=== PATIENT | male | born 1990 | race Caucasian/White ===

== ENCOUNTER 2016-05-07 16:53 | Emergency (ER) | payer OTHER ==
[2016-05-07] MEDS ORDERED: DERMABOND TOPICAL SKIN ADHESIVE As Ordered ONE (18:33)
[2016-05-07] MEDS ORDERED: AUGMENTIN 875 MG TAB As Ordered ONE (18:33)
[2016-05-07] MEDS ORDERED: IBUPROFEN 600 MG TAB As Ordered ONE (18:33)
--- NOTE | 2016-05-07 18:50 | EDDOCDS ---
Nurse's Notes [facility] Name: Calin Grey Age: 25 yrs Sex: Male : 1990 Arrival Date: 05/07/2016 Time: 16:53 Bed TR7 Private MD: Other - Complete Info On Cds Diagnosis: Laceration without foreign body of other part of head-left lower eyelid;Bitten by dog Presentation: 05/07 17:08 Presenting complaint: Patient states: bit by his own dog about 45 minutes ago - kcs laceration under left eye. No visual disturbance. Adult Sepsis Screening: The patient does not have new or worsening altered mentation. Patient's respiratory rate is less than 22. Systolic blood pressure is greater than 100. Patient has a qSOFA score of 0- Negative Sepsis Screen. Suicide/Homicide risk assessment- the patient denies having any suicidal and/or homicidal ideations and does not present with any other emotional, behavioral or mental health complaints. 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 Transition of care: patient was not received from another setting of care. 17:08 Acuity: YOSHI Level 4 kcs 17:08 Method Of Arrival: Walkin/Carried/Asstd kcs Triage Assessment: 17:10 Bite Description: Bite sustained to under left eye by a dog, Animal Information: kcs Vaccine status: is current. General: Appears comfortable, well developed, well nourished, well groomed, Behavior is cooperative, flat. Pain: Location: under left eye Pain currently is 5 out of 10 on a pain scale. HIV screening NA for this visit active duty . Neurological: Level of Consciousness is awake, alert. Respiratory: Airway is patent Respiratory effort is even, unlabored, Respiratory pattern is regular, symmetrical. Derm: Skin is intact, is healthy with good turgor, Skin is dry, Skin is normal. Injury Description: Laceration sustained to under left eye - no active bleeding. Historical: - Allergies: No known drug Allergies; - Home Meds: 1. none - PMHx: none; - PSHx: Tonsillectomy; - Immunization history:: Last tetanus immunization: up to date. - Family history: Not pertinent. - Social history: Smoking status: Patient uses tobacco products, light tobacco smoker. No barriers to communication noted, The patient speaks fluent Estonian. - : The pt / caregiver states he / she is not on anticoagulants. Home medication list is obtained from the patient. - Exposure Risk Screening:: None identified. Screenin:36 Screening information is obtained from the patient. Fall risk: No risks identified. ms18 Assistance ADL's: requires no assistance with activities of daily living. Abuse/DV Screen: The patient / caregiver reports he/she is: not in a situation that causes fear, pain or injury. Nutritional screening: No deficits noted. Advance Directives: There is no living will. home support is adequate. Assessment: 18:36 General: Appears in no apparent distress, comfortable, Behavior is appropriate for age, ms18 cooperative. Pain: Location: left lower eyelid. Neurological: Level of Consciousness is awake, alert, obeys commands, Oriented to person, place, time. Respiratory: Airway is patent Respiratory effort is even, unlabored. Derm: Skin has skin tears on under L eye, no bleeding noted at this time Skin is pink, warm & dry. Vital Signs: 16:55 BP 157 / 82; Pulse 69; Resp 18 S; Temp 98.3(O); Pulse Ox 100% on R/A; Weight 88.45 kg dd6 (R); Height 5 ft. 11 in. (180.34 cm) (R); Pain 6/10; 16:55 Body Mass Index 27.20 (88.45 kg, 180.34 cm) dd6 Vitals: 16:55 Log In Time: May 07, 2016 at 16:55. dd6 ED Course: 16:55 Patient visited by Vamsi Pearl PCA. dd6 16:55 Other - Complete Info On Cds is Private Physician. dd6 16:55 Patient moved to Waiting dd6 16:56 Patient visited by Vamsi Pearl PCA. dd6 16:56 Patient moved to Pre RCE dd6 17:09 Triage Initiated kcs 18:15 Patient moved to Triage 3 ct3 18:19 Quan Panda PA is PHCP. mo1 18:19 Yoko Martinez MD is Attending Physician. mo1 18:26 Patient visited by Quan Panda PA. mo1 18:36 Patient visited by Cristin Self RN. ms18 18:36 The patient / caregiver is instructed regarding the plan of care and ED course. ms18 Accompanied by Significant Other, Patient has correct armband on for positive identification. Property sent home with patient. :Personal belongings accompany Pt. 18:36 No IV's were initiated during this patient's visit. No procedures done that require ms18 assistance. 18:48 Patient moved to 7 ct3 18:49 Patient visited by Cristin Self,JOY. ms18 Administered Medications: 18:35 Drug: Ibuprofen 600 mg [ibuprofen 600 mg tablet (1 tabs)] Route: PO; ms18 18:35 Drug: Amoxicillin-Clavulanate 1 tabs [amoxicillin 875 mg-potassium clavulanate 125 mg ms18 tablet (1 tabs)] Route: PO; Order Results: There are currently no results for this order. Outcome: 18:36 Discharge Assessment: Patient awake, alert and oriented x 3. No cognitive and/or ms18 functional deficits noted. Patient verbalized understanding of disposition instructions. patient administered narcotics - no. The following High Risk Discharge criteria are identified: None. Discharged to home ambulatory. Condition: good Condition: stable Condition: improved. No special radiology studies were completed. 18:44 Discharge ordered by Provider. mo1 18:49 Discharge instructions given to patient, Instructed on discharge instructions, follow ms18 up and referral plans. medication usage, Demonstrated understanding of instructions, medications, Pt was receptive of discharge instructions/ teaching. Prescriptions given X 1. 18:49 Patient left the ED. ms18 Signatures: Bonnie Hernandez, RN Vamsi Oh, BAG LINER BAG LINER dd6 Jen Alejandre, BAG LINER BAG LINER ct3 Quan Panda PA PA mo1 Cristin Self RN RN ms18 MTDD
--- NOTE | 2016-05-07 18:50 | EDDOCDS ---
Physician Documentation [facility] Name: Calin Grey Age: 25 yrs Sex: Male : 1990 Arrival Date: 05/07/2016 Time: 16:53 Bed TR7 Private MD: Other - Complete Info On Cds Disposition: 05/07/16 18:44 Discharged to Home/Self Care. Impression: Laceration without foreign body of other part of head - left lower eyelid, Bitten by dog. - Condition is Stable. - Discharge Instructions: Facial Laceration, Stitches, Bossman, or Adhesive Wound Closure, Animal Bite. - Prescriptions for Augmentin 875- 125 mg Oral Tablet - take 1 tablet by ORAL route every 12 hours for 10 days; 20 tablet. - Medication Reconciliation, Local Pharmacy Hours form. - Follow up: Private Physician; When: Call to arrange an appointment; Reason: Recheck today's complaints, Continuance of care. - Problem is new. - Symptoms are unchanged. Historical: - Allergies: No known drug Allergies; - Home Meds: 1. none - PMHx: none; - PSHx: Tonsillectomy; - Immunization history:: Last tetanus immunization: up to date. - Family history: Not pertinent. - Social history: Smoking status: Patient uses tobacco products, light tobacco smoker. No barriers to communication noted, The patient speaks fluent Malaysian. - : The pt / caregiver states he / she is not on anticoagulants. Home medication list is obtained from the patient. - Exposure Risk Screening:: None identified. Vital Signs: 05/07 16:55 BP 157 / 82; Pulse 69; Resp 18 S; Temp 98.3(O); Pulse Ox 100% on R/A; Weight 88.45 kg / dd6 195 lbs (R); Height 5 ft. 11 in. (180.34 cm) (R); Pain 6/10; 16:55 Body Mass Index 27.20 (88.45 kg, 180.34 cm) dd6 Procedures: 18:40 Laceration repair:. mo1 Laceration: 18:40 Wound Repair of 2cm ( 0.8in ) partial thickness laceration to left lower eyelid. Distal mo1 neuro/vascular/tendon intact. Anesthesia: None with None. Skin closed with 1 thin layer Dermabond using dermabond applied to lower margin of flap like partial thickness lac. Patient tolerated well. MDM: 18:33 Ibuprofen 600 mg PO once ordered. mo1 18:33 Dermabond to bedside ordered. mo1 18:33 Amoxicillin-Clavulanate 875 mg 1 tabs PO once ordered. mo1 Administered Medications: 18:35 Drug: Ibuprofen 600 mg [ibuprofen 600 mg tablet (1 tabs)] Route: PO; ms18 18:35 Drug: Amoxicillin-Clavulanate 1 tabs [amoxicillin 875 mg-potassium clavulanate 125 mg ms18 tablet (1 tabs)] Route: PO; Signatures: Bonnie Hernandez, RN RN kcs Quan Panda PA PA mo1 Cristin Self RN RN ms18 MTDD
--- NOTE | 2016-05-09 20:34 | EDDOCDS ---
Nurse's Notes [facility] Name: Calin Grey Age: 25 yrs Sex: Male : 1990 Arrival Date: 05/07/2016 Time: 16:53 Bed TR7 Private MD: Other - Complete Info On Cds Diagnosis: Laceration without foreign body of other part of head-left lower eyelid;Bitten by dog Presentation: 05/07 17:08 Presenting complaint: Patient states: bit by his own dog about 45 minutes ago - kcs laceration under left eye. No visual disturbance. Adult Sepsis Screening: The patient does not have new or worsening altered mentation. Patient's respiratory rate is less than 22. Systolic blood pressure is greater than 100. Patient has a qSOFA score of 0- Negative Sepsis Screen. Suicide/Homicide risk assessment- the patient denies having any suicidal and/or homicidal ideations and does not present with any other emotional, behavioral or mental health complaints. 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 Transition of care: patient was not received from another setting of care. 17:08 Acuity: YOSHI Level 4 kcs 17:08 Method Of Arrival: Walkin/Carried/Asstd kcs Triage Assessment: 17:10 Bite Description: Bite sustained to under left eye by a dog, Animal Information: kcs Vaccine status: is current. General: Appears comfortable, well developed, well nourished, well groomed, Behavior is cooperative, flat. Pain: Location: under left eye Pain currently is 5 out of 10 on a pain scale. HIV screening NA for this visit active duty . Neurological: Level of Consciousness is awake, alert. Respiratory: Airway is patent Respiratory effort is even, unlabored, Respiratory pattern is regular, symmetrical. Derm: Skin is intact, is healthy with good turgor, Skin is dry, Skin is normal. Injury Description: Laceration sustained to under left eye - no active bleeding. Historical: - Allergies: No known drug Allergies; - Home Meds: 1. none - PMHx: none; - PSHx: Tonsillectomy; - Immunization history:: Last tetanus immunization: up to date. - Family history: Not pertinent. - Social history: Smoking status: Patient uses tobacco products, light tobacco smoker. No barriers to communication noted, The patient speaks fluent Slovenian. - : The pt / caregiver states he / she is not on anticoagulants. Home medication list is obtained from the patient. - Exposure Risk Screening:: None identified. Screenin:36 Screening information is obtained from the patient. Fall risk: No risks identified. ms18 Assistance ADL's: requires no assistance with activities of daily living. Abuse/DV Screen: The patient / caregiver reports he/she is: not in a situation that causes fear, pain or injury. Nutritional screening: No deficits noted. Advance Directives: There is no living will. home support is adequate. Assessment: 18:36 General: Appears in no apparent distress, comfortable, Behavior is appropriate for age, ms18 cooperative. Pain: Location: left lower eyelid. Neurological: Level of Consciousness is awake, alert, obeys commands, Oriented to person, place, time. Respiratory: Airway is patent Respiratory effort is even, unlabored. Derm: Skin has skin tears on under L eye, no bleeding noted at this time Skin is pink, warm & dry. Vital Signs: 16:55 BP 157 / 82; Pulse 69; Resp 18 S; Temp 98.3(O); Pulse Ox 100% on R/A; Weight 88.45 kg dd6 (R); Height 5 ft. 11 in. (180.34 cm) (R); Pain 6/10; 16:55 Body Mass Index 27.20 (88.45 kg, 180.34 cm) dd6 Vitals: 16:55 Log In Time: May 07, 2016 at 16:55. dd6 ED Course: 16:55 Patient visited by Vamsi Pearl PCA. dd6 16:55 Other - Complete Info On Cds is Private Physician. dd6 16:55 Patient moved to Waiting dd6 16:56 Patient visited by Vamsi Pearl PCA. dd6 16:56 Patient moved to Pre RCE dd6 17:09 Triage Initiated kcs 18:15 Patient moved to Triage 3 ct3 18:19 Quan Panda PA is PHCP. mo1 18:19 Yoko Martinez MD is Attending Physician. mo1 18:26 Patient visited by Quan Panda PA. mo1 18:36 Patient visited by Cristin Self RN. ms18 18:36 The patient / caregiver is instructed regarding the plan of care and ED course. ms18 Accompanied by Significant Other, Patient has correct armband on for positive identification. Property sent home with patient. :Personal belongings accompany Pt. 18:36 No IV's were initiated during this patient's visit. No procedures done that require ms18 assistance. 18:48 Patient moved to 7 ct3 18:49 Patient visited by Cristin Self RN. ms18 20:45 [facility] Payment Agreement was scanned into [employer] and attached to record. didier 05/08 05:58 T-Sheet-- Draft Copy was scanned into [employer] and attached to record. lja Administered Medications: 05/07 18:35 Drug: Ibuprofen 600 mg [ibuprofen 600 mg tablet (1 tabs)] Route: PO; ms18 18:35 Drug: Amoxicillin-Clavulanate 1 tabs [amoxicillin 875 mg-potassium clavulanate 125 mg ms18 tablet (1 tabs)] Route: PO; Order Results: There are currently no results for this order. Outcome: 18:36 Discharge Assessment: Patient awake, alert and oriented x 3. No cognitive and/or ms18 functional deficits noted. Patient verbalized understanding of disposition instructions. patient administered narcotics - no. The following High Risk Discharge criteria are identified: None. Discharged to home ambulatory. Condition: good Condition: stable Condition: improved. No special radiology studies were completed. 18:44 Discharge ordered by Provider. mo1 18:49 Discharge instructions given to patient, Instructed on discharge instructions, follow ms18 up and referral plans. medication usage, Demonstrated understanding of instructions, medications, Pt was receptive of discharge instructions/ teaching. Prescriptions given X 1. 18:49 Patient left the ED. ms18 Signatures: Bonnie Hernandez RN RN kcs Desormeau, Daniell, LAST SAWYER LAST SAWYER dd6 Jen Alejandre, LAST SAWYER LAST SAWYER ct3 Quan Panda PA PA mo1 Cristin Self RN RN ms18 Arel, Nancy Schafer Chart Complete MTDD
--- NOTE | 2016-05-09 20:34 | EDDOCDS ---
Physician Documentation [facility] Name: Calin Grey Age: 25 yrs Sex: Male : 1990 Arrival Date: 05/07/2016 Time: 16:53 Bed TR7 Private MD: Other - Complete Info On Cds Disposition: 05/07/16 18:44 Discharged to Home/Self Care. Impression: Laceration without foreign body of other part of head - left lower eyelid, Bitten by dog. - Condition is Stable. - Discharge Instructions: Facial Laceration, Stitches, Bossman, or Adhesive Wound Closure, Animal Bite. - Prescriptions for Augmentin 875- 125 mg Oral Tablet - take 1 tablet by ORAL route every 12 hours for 10 days; 20 tablet. - Medication Reconciliation, Local Pharmacy Hours form. - Follow up: Private Physician; When: Call to arrange an appointment; Reason: Recheck today's complaints, Continuance of care. - Problem is new. - Symptoms are unchanged. Historical: - Allergies: No known drug Allergies; - Home Meds: 1. none - PMHx: none; - PSHx: Tonsillectomy; - Immunization history:: Last tetanus immunization: up to date. - Family history: Not pertinent. - Social history: Smoking status: Patient uses tobacco products, light tobacco smoker. No barriers to communication noted, The patient speaks fluent Cuban. - : The pt / caregiver states he / she is not on anticoagulants. Home medication list is obtained from the patient. - Exposure Risk Screening:: None identified. Vital Signs: 05/07 16:55 BP 157 / 82; Pulse 69; Resp 18 S; Temp 98.3(O); Pulse Ox 100% on R/A; Weight 88.45 kg / dd6 195 lbs (R); Height 5 ft. 11 in. (180.34 cm) (R); Pain 6/10; 16:55 Body Mass Index 27.20 (88.45 kg, 180.34 cm) dd6 Procedures: 18:40 Laceration repair:. mo1 Laceration: 18:40 Wound Repair of 2cm ( 0.8in ) partial thickness laceration to left lower eyelid. Distal mo1 neuro/vascular/tendon intact. Anesthesia: None with None. Skin closed with 1 thin layer Dermabond using dermabond applied to lower margin of flap like partial thickness lac. Patient tolerated well. MDM: 18:33 Ibuprofen 600 mg PO once ordered. mo1 18:33 Dermabond to bedside ordered. mo1 18:33 Amoxicillin-Clavulanate 875 mg 1 tabs PO once ordered. mo1 20:45 [facility] Payment Agreement was scanned into [employer] and attached to record. gjb 20:45 Financial registration complete. [facility] 05/08 05:58 T-Sheet-- Draft Copy was scanned into [employer] and attached to record. lja Administered Medications: 05/07 18:35 Drug: Ibuprofen 600 mg [ibuprofen 600 mg tablet (1 tabs)] Route: PO; ms18 18:35 Drug: Amoxicillin-Clavulanate 1 tabs [amoxicillin 875 mg-potassium clavulanate 125 mg ms18 tablet (1 tabs)] Route: PO; Signatures: Bonnie Hernandez RN RN kcs Quan Panda PA PA mo1 Cristin Self RN RN ms18 Arel, Nancy Schafer The chart was reviewed and I authenticate all verbal orders and agree with the evaluation and treatment provided.Attachments: 20:45 [facility] Payment Agreement [facility] 05/08 05:58 T-Sheet-- Draft Copy thuy Chart Complete MTDD
--- NOTE | 2016-05-09 20:34 | EDDOCDS ---
Physician Documentation [facility] Name: Calin Grey Age: 25 yrs Sex: Male : 1990 Arrival Date: 05/07/2016 Time: 16:53 Bed TR7 Private MD: Other - Complete Info On Cds Disposition: 05/07/16 18:44 Discharged to Home/Self Care. Impression: Laceration without foreign body of other part of head - left lower eyelid, Bitten by dog. - Condition is Stable. - Discharge Instructions: Facial Laceration, Stitches, Bossman, or Adhesive Wound Closure, Animal Bite. - Prescriptions for Augmentin 875- 125 mg Oral Tablet - take 1 tablet by ORAL route every 12 hours for 10 days; 20 tablet. - Medication Reconciliation, Local Pharmacy Hours form. - Follow up: Private Physician; When: Call to arrange an appointment; Reason: Recheck today's complaints, Continuance of care. - Problem is new. - Symptoms are unchanged. Historical: - Allergies: No known drug Allergies; - Home Meds: 1. none - PMHx: none; - PSHx: Tonsillectomy; - Immunization history:: Last tetanus immunization: up to date. - Family history: Not pertinent. - Social history: Smoking status: Patient uses tobacco products, light tobacco smoker. No barriers to communication noted, The patient speaks fluent Bruneian. - : The pt / caregiver states he / she is not on anticoagulants. Home medication list is obtained from the patient. - Exposure Risk Screening:: None identified. Vital Signs: 05/07 16:55 BP 157 / 82; Pulse 69; Resp 18 S; Temp 98.3(O); Pulse Ox 100% on R/A; Weight 88.45 kg / dd6 195 lbs (R); Height 5 ft. 11 in. (180.34 cm) (R); Pain 6/10; 16:55 Body Mass Index 27.20 (88.45 kg, 180.34 cm) dd6 Procedures: 18:40 Laceration repair:. mo1 Laceration: 18:40 Wound Repair of 2cm ( 0.8in ) partial thickness laceration to left lower eyelid. Distal mo1 neuro/vascular/tendon intact. Anesthesia: None with None. Skin closed with 1 thin layer Dermabond using dermabond applied to lower margin of flap like partial thickness lac. Patient tolerated well. MDM: 18:33 Ibuprofen 600 mg PO once ordered. mo1 18:33 Dermabond to bedside ordered. mo1 18:33 Amoxicillin-Clavulanate 875 mg 1 tabs PO once ordered. mo1 20:45 [facility] Payment Agreement was scanned into [employer] and attached to record. gjb 20:45 Financial registration complete. [facility] 05/08 05:58 T-Sheet-- Draft Copy was scanned into [employer] and attached to record. lja Administered Medications: 05/07 18:35 Drug: Ibuprofen 600 mg [ibuprofen 600 mg tablet (1 tabs)] Route: PO; ms18 18:35 Drug: Amoxicillin-Clavulanate 1 tabs [amoxicillin 875 mg-potassium clavulanate 125 mg ms18 tablet (1 tabs)] Route: PO; Signatures: Bonnie Hernandez RN RN kcs Quan Panda PA PA mo1 Cristin Self RN RN ms18 Arel, Nancy Schafer The chart was reviewed and I authenticate all verbal orders and agree with the evaluation and treatment provided.Attachments: 20:45 [facility] Payment Agreement [facility] 05/08 05:58 T-Sheet-- Draft Copy thuy Chart Complete MTDD
== END 2016-05-07 18:49 | disposition home or self-care (01) ==
LOC: M ED 16:53
DX: S01.112A Laceration without foreign body of left eyelid and periocular area, initial encounter (principal); S00.83XA Contusion of other part of head, initial encounter; W54.0XXA Bitten by dog, initial encounter; Y92.019 Unspecified place in single-family (private) house as the place of occurrence of the external cause; Y93.89 Activity, other specified; Y99.8 Other external cause status; Z72.0 Tobacco use; Z90.89 Acquired absence of other organs

== ENCOUNTER 2016-06-11 19:50 | Emergency (ER) | payer OTHER ==
--- NOTE | 2016-06-11 21:10 | REPUSA ---
Clinical history: Pain. Findings: Real-time ultrasound imaging of the testicles and scrotum was performed. The right testicle measures 4.1 x 3.5 x 3.0 cm. The left testicle measures 4.5 x 2.7 x 2.0 cm. The testicles demonstrat e normal echo texture and echogenicity. The right epididymis is enlarged and hypervascular. Normal co dianna Doppler flow and arterial waveforms are otherwise seen bilaterally. There is a small extratesticu lar calcification in the right scrotum measuring 3 mm in diameter. There are small bilateral hydrocel es. Impression: 1. Findings consistent with right-sided epididymitis. 2. Small bilateral hydroceles. 3. Right scrotal ger. 4. No evidence of testicular torsion.
[2016-06-11] MEDS ORDERED: AZITHROMYCIN 250 MG TAB As Ordered ONE (22:03)
[2016-06-11] MEDS ORDERED: cefTRIAXone SOD 250 MG VIAL (J0696) As Ordered ONE (22:03)
[2016-06-11] MEDS ORDERED: LIDOCAINE 1% MDV 20ML VIAL As Ordered ONE (22:03)
[2016-06-11] MEDS ORDERED: NORCO 5/325MG TABLET (BULK) As Ordered ONE (22:16)
--- NOTE | 2016-06-11 22:40 | EDDOCDS ---
Nurse's Notes [facility] Name: Calin Grey Age: 26 yrs Sex: Male : 1990 Arrival Date: 06/11/2016 Time: 19:50 Bed PR Private MD: Long Pizarro [facility] Diagnosis: Epididymitis-Right;Hydrocele, unspecified-Small bilateral hydroceles Presentation: 06/11 19:55 Presenting complaint: Patient states: Patient reports that his right testicle is jmb swollen with pain. Symptoms started on Saturday. Patient reports the only change since Saturday is swelling. Adult Sepsis Screening: The patient does not have new or worsening altered mentation. Patient's respiratory rate is less than 22. Systolic blood pressure is greater than 100. Patient has a qSOFA score of 0- Negative Sepsis Screen. Suicide/Homicide risk assessment- the patient denies having any suicidal and/or homicidal ideations and does not present with any other emotional, behavioral or mental health complaints. 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 Transition of care: patient was not received from another setting of care. 19:55 Acuity: YOSHI Level 3 b 19:55 Method Of Arrival: Walkin/Carried/Asstd jmb Triage Assessment: 19:56 General: Appears uncomfortable, Behavior is appropriate for age, cooperative. Pain: b Location: groin Pain currently is 8 out of 10 on a pain scale. HIV screening NA for this visit Offered previously. Neurological: Level of Consciousness is awake, alert, obeys commands, Oriented to person, place, time, Speech is normal, Facial symmetry appears normal, Facial symmetry: tongue is midline. Respiratory: Airway is patent Respiratory effort is even, unlabored, Respiratory pattern is regular, symmetrical. Derm: Skin is pink, warm & dry. Musculoskeletal: Range of motion intact in all extremities. Historical: - Allergies: No known drug Allergies; - Home Meds: 1. none - PMHx: none; - PSHx: Tonsillectomy; - Social history: Smoking status: Patient uses tobacco products, light tobacco smoker. No barriers to communication noted, The patient speaks fluent Armenian, Speaks appropriately for age. - Family history: Not pertinent. - : The pt / caregiver states he / she is not on anticoagulants. Home medication list is obtained from the patient. - Exposure Risk Screening:: None identified. Screenin:38 Screening information is obtained from the patient. Fall risk: No risks identified. kc3 Assistance ADL's: requires no assistance with activities of daily living. Abuse/DV Screen: The patient / caregiver reports he/she is: not in a situation that causes fear, pain or injury. Nutritional screening: No deficits noted. Advance Directives: Currently, there is no health care proxy. home support is adequate. Assessment: 22:37 General: Appears in no apparent distress, comfortable, Behavior is appropriate for age, kc3 cooperative. Pain: Location: groin Pain currently is 9 out of 10 on a pain scale. Neurological: Level of Consciousness is awake, alert, obeys commands. Respiratory: Airway is patent Respiratory effort is even, unlabored. : Reports pain Pain is 9 out of 10 on a pain scale. Derm: Skin is pink, warm & dry. Vital Signs: 19:52 BP 165 / 81; Pulse 64; Resp 18; Temp 98.5(T); Pulse Ox 100% on R/A; Weight 88.45 kg dem1 (R); Height 5 ft. 11 in. (180.34 cm) (R); Pain 8/10; 21:37 BP 151 / 81; Pulse 67; Resp 18; Temp 99.3(TE); Pulse Ox 100% on R/A; Pain 10/10; ar3 22:38 BP 142 / 86; Pulse 66; Resp 18; Temp 99.2(TE); Pulse Ox 99% on R/A; Pain 9/10; kc3 19:52 Body Mass Index 27.20 (88.45 kg, 180.34 cm) [facility] Vitals: 19:52 Log In Time: June 11, 2016 at 19:46. [facility] ED Course: 19:51 Patient visited by Natalie Reed. dem1 19:51 Patient moved to Waiting dem1 19:52 Long Pizarro [facility] is Private Physician. dem1 19:53 Patient moved to Pre RCE dem1 19:56 Triage Initiated jmb 20:39 Patient moved to Ultrasound hgl 21:01 Patient moved to Pre RCE ar3 21:08 GC & Chlamydia Amplification Sent. jmb 21:08 Urine Culture Sent. jmb 21:08 UA Sent. jmb 21:27 Telma Maradiaga PA-C is PHCP. ef1 21:27 Ned Singh DO is Attending Physician. ef1 21:30 Patient moved to PR1 / 25 ar3 21:31 Patient visited by Telma Maradiaga PA-C. ef1 21:37 Patient visited by Philly Gordillo PCA. ar3 21:48 Scrotal, US Returned. EDMS 22:09 Patient visited by Telma Maradiaga PA-C. ef1 22:23 Long Pizarro [facility] is Referral Physician. ef1 22:24 [facility] Payment Agreement was scanned into [employer] and attached to record. zo 22:26 Derek Schneider is Referral Physician. ef1 22:39 The patient / caregiver is instructed regarding the plan of care and ED course. kc3 22:39 No IV's were initiated during this patient's visit. No procedures done that require kc3 assistance. Administered Medications: 10:23 Drug: cefTRIAXone 250 mg [ceftriaxone 250 mg solution for injection (250 mg)] Route: kc3 IM; Site: right gluteus; 22:24 Drug: HYDROcodone-acetaminophen 4 pack- 1 packets [hydrocodone 5 mg-acetaminophen 325 kc3 mg tablet (1 tabs)] {Co-Signature: lf1 (Adali Low RN).} Route: PO; 22:25 Drug: azithromycin 1 grams [azithromycin 250 mg tablet (4 tabs)] Route: PO; kc3 Order Results: Lab Order: UA; SPEC'M 06/11/16 21:00 Test: APPEARANCE, URINE; Value: CLEAR; Range: CLEAR; Status: F Test: COLOR, URINE; Value: STRAW; Range: YELLOW; Status: F Test: PH,URINE; Value: 6.0; Range: 5.0-9.0; Units: UNITS; Status: F Test: SPECIFIC GRAVITY URINE AUTO; Value: 1.006; Range: 1.002-1.035; Status: F Test: PROTEIN, URINE AUTO; Value: NEGATIVE; Range: NEGATIVE; Units: mg/dL; Status: F Test: GLUCOSE, URINE (UA) AUTO; Value: NEGATIVE; Range: NEGATIVE; Units: mg/dL; Status: F Test: KETONE, URINE AUTO; Value: NEGATIVE; Range: NEGATIVE; Units: mg/dL; Status: F Test: UROBILINOGEN, URINE AUTO; Value: 0.2; Range: 0.0-2.0; Units: mg/dL; Status: F Test: BILIRUBIN, URINE AUTO; Value: NEGATIVE; Range: NEGATIVE; Status: F Test: NITRITE, URINE AUTO; Value: NEGATIVE; Range: NEGATIVE; Status: F Test: LEUKOCYTE ESTERASE, URINE AUTO; Value: NEGATIVE; Range: NEGATIVE; Status: F Test: BLOOD, URINE BLOOD; Value: NEGATIVE; Range: NEGATIVE; Status: F Test: WBC, URINE AUTO; Value: 2; Range: 0-3; Units: /HPF; Status: F Test: RBC, URINE AUTO; Value: 1; Range: 0-3; Units: /HPF; Status: F Test: BACTERIA, URINE AUTO; Value: NEGATIVE; Range: NEGATIVE; Status: F Test: SQUAMOUS EPITHELIAL CELL UR AU; Value: 0; Range: 0-6; Units: /HPF; Status: F Test: HYALINE CAST, URINE AUTO; Value: 0; Range: 0-1; Units: /LPF; Status: F Radiology Order: Scrotal, US Test: Scrotal, US REASON FOR EXAMINATION: Deformity/Swelling; ; Clinical history: Pain.; Findings: Real-time ultrasound imaging of the testicles and scrotum was performed. The right testicle; measures 4.1 x 3.5 x 3.0 cm. The left testicle measures 4.5 x 2.7 x 2.0 cm. The testicles demonstrat; e normal echo texture and echogenicity. The right epididymis is enlarged and hypervascular. Normal co; dianna Doppler flow and arterial waveforms are otherwise seen bilaterally. There is a small extratesticu; lar calcification in the right scrotum measuring 3 mm in diameter. There are small bilateral hydrocel; es.; Impression:; 1. Findings consistent with right-sided epididymitis.; 2. Small bilateral hydroceles.; 3. Right scrotal ger.; 4. No evidence of testicular torsion.; ; Outcome: 22:23 Discharge ordered by Provider. ef1 22:39 Discharge Assessment: Patient awake, alert and oriented x 3. No cognitive and/or kc3 functional deficits noted. Patient verbalized understanding of disposition instructions. patient administered narcotics - no. The following High Risk Discharge criteria are identified: None. Discharged to home ambulatory. Condition: stable. Discharge instructions given to patient, Instructed on discharge instructions, follow up and referral plans. medication usage, Demonstrated understanding of instructions, medications, Pt was receptive of discharge instructions/ teaching. Prescriptions given X 1. No special radiology studies were completed. Property :Personal belongings accompany Pt. 22:39 Patient left the ED. kc3 Signatures: Dispatcher [employer] EDMS Lulu West Erica, PA-C PA-C ef1 Philly Gordillo, PATENT LITIGATION ASSOCIATE PATENT LITIGATION ASSOCIATE ar3 Natalie Reed1 Eve, Ricky newl Ck Griffin,RN RN Nataliia Owens,RN RN kc3 Adali Low RN lf1 MTDD
--- NOTE | 2016-06-11 22:40 | EDDOCDS ---
Physician Documentation [facility] Name: Calin Grey Age: 26 yrs Sex: Male : 1990 Arrival Date: 06/11/2016 Time: 19:50 Bed PR Private MD: Long Pizarro [facility] Disposition: 06/11/16 22:23 Discharged to Home/Self Care. Impression: Epididymitis - Right, Hydrocele, unspecified - Small bilateral hydroceles. - Condition is Stable. - Discharge Instructions: Epididymitis. - Prescriptions for Ibuprofen 800 mg Oral Tablet - take 1 tablet by ORAL route every 8 hours As needed take with food; 30 tablet. - Medication Reconciliation, Local Pharmacy Hours form. - Follow up: [facility] Long Pizarro; When: 1 - 2 days; Reason: Recheck today's complaints, Continuance of care. Follow up: Emergency Department; Reason: Worsening of conditions. Follow up: Derek Schneider; When: Call to arrange an appointment; Reason: Further diagnostic work-up, Recheck today's complaints, Continuance of care. - Problem is new. - Symptoms have improved. Historical: - Allergies: No known drug Allergies; - Home Meds: 1. none - PMHx: none; - PSHx: Tonsillectomy; - Social history: Smoking status: Patient uses tobacco products, light tobacco smoker. No barriers to communication noted, The patient speaks fluent Faroese, Speaks appropriately for age. - Family history: Not pertinent. - : The pt / caregiver states he / she is not on anticoagulants. Home medication list is obtained from the patient. - Exposure Risk Screening:: None identified. Vital Signs: 06/11 19:52 BP 165 / 81; Pulse 64; Resp 18; Temp 98.5(T); Pulse Ox 100% on R/A; Weight 88.45 kg / dem1 195 lbs (R); Height 5 ft. 11 in. (180.34 cm) (R); Pain 8/10; 21:37 BP 151 / 81; Pulse 67; Resp 18; Temp 99.3(TE); Pulse Ox 100% on R/A; Pain 10/10; ar3 22:38 BP 142 / 86; Pulse 66; Resp 18; Temp 99.2(TE); Pulse Ox 99% on R/A; Pain 9/10; kc3 19:52 Body Mass Index 27.20 (88.45 kg, 180.34 cm) dem1 MDM: 20:21 UA Ordered. EDMS 20:21 GC & Chlamydia Amplification Ordered. EDMS 20:21 Urine Culture Ordered. EDMS 20:22 Scrotal, US Ordered. EDMS 20:28 DUPLEX SCAN LIMITED (DOPPLER) Ordered. EDMS 21:28 Recheck B/P ordered. ef1 21:28 UA Reviewed. ef1 21:52 cefTRIAXone 250 mg IM once ordered. ef1 21:52 azithromycin 1 grams PO once ordered. ef1 22:07 Financial registration complete. zo 22:10 HYDROcodone-acetaminophen 4 pack- 5 mg-325 mg 1 packets PO Per package directions; ef1 Dispense with patient. 1 po q4h prn for pain ordered. 22:24 [facility] Payment Agreement was scanned into [employer] and attached to record. zo 22:24 Scrotal, US Reviewed. ef1 Administered Medications: 10:23 Drug: cefTRIAXone 250 mg [ceftriaxone 250 mg solution for injection (250 mg)] Route: kc3 IM; Site: right gluteus; 22:24 Drug: HYDROcodone-acetaminophen 4 pack- 1 packets [hydrocodone 5 mg-acetaminophen 325 kc3 mg tablet (1 tabs)] {Co-Signature: lf1 (Adali Low RN).} Route: PO; 22:25 Drug: azithromycin 1 grams [azithromycin 250 mg tablet (4 tabs)] Route: PO; kc3 Signatures: Dispatcher [employer] EDMS Lulu West Erica, PA-C PAJoseC ef1 Ck Griffin RN RN jmb Crane, Kelsi, RN RN kc3 Adali Low RN lf1 The chart was reviewed and I authenticate all verbal orders and agree with the evaluation and treatment provided.Attachments: 22:24 [facility] Payment Agreement zo MTDD
--- NOTE | 2016-06-13 23:40 | EDDOCDS ---
Physician Documentation [facility] Name: Calin Grey Age: 26 yrs Sex: Male : 1990 Arrival Date: 06/11/2016 Time: 19:50 Bed PR Private MD: Long Pizarro [facility] Disposition: 06/11/16 22:23 Discharged to Home/Self Care. Impression: Epididymitis - Right, Hydrocele, unspecified - Small bilateral hydroceles. - Condition is Stable. - Discharge Instructions: Epididymitis. - Prescriptions for Ibuprofen 800 mg Oral Tablet - take 1 tablet by ORAL route every 8 hours As needed take with food; 30 tablet. - Medication Reconciliation, Local Pharmacy Hours form. - Follow up: [facility] Long Pizarro; When: 1 - 2 days; Reason: Recheck today's complaints, Continuance of care. Follow up: Emergency Department; Reason: Worsening of conditions. Follow up: Derek Schneider; When: Call to arrange an appointment; Reason: Further diagnostic work-up, Recheck today's complaints, Continuance of care. - Problem is new. - Symptoms have improved. Historical: - Allergies: No known drug Allergies; - Home Meds: 1. none - PMHx: none; - PSHx: Tonsillectomy; - Social history: Smoking status: Patient uses tobacco products, light tobacco smoker. No barriers to communication noted, The patient speaks fluent Pashto, Speaks appropriately for age. - Family history: Not pertinent. - : The pt / caregiver states he / she is not on anticoagulants. Home medication list is obtained from the patient. - Exposure Risk Screening:: None identified. Vital Signs: 06/11 19:52 BP 165 / 81; Pulse 64; Resp 18; Temp 98.5(T); Pulse Ox 100% on R/A; Weight 88.45 kg / dem1 195 lbs (R); Height 5 ft. 11 in. (180.34 cm) (R); Pain 8/10; 21:37 BP 151 / 81; Pulse 67; Resp 18; Temp 99.3(TE); Pulse Ox 100% on R/A; Pain 10/10; ar3 22:38 BP 142 / 86; Pulse 66; Resp 18; Temp 99.2(TE); Pulse Ox 99% on R/A; Pain 9/10; kc3 19:52 Body Mass Index 27.20 (88.45 kg, 180.34 cm) dem1 MDM: 20:21 UA Ordered. EDMS 20:21 GC & Chlamydia Amplification Ordered. EDMS 20:21 Urine Culture Ordered. EDMS 20:22 Scrotal, US Ordered. EDMS 20:28 DUPLEX SCAN LIMITED (DOPPLER) Ordered. EDMS 21:28 Recheck B/P ordered. ef1 21:28 UA Reviewed. ef1 21:52 cefTRIAXone 250 mg IM once ordered. ef1 21:52 azithromycin 1 grams PO once ordered. ef1 22:07 Financial registration complete. zo 22:10 HYDROcodone-acetaminophen 4 pack- 5 mg-325 mg 1 packets PO Per package directions; ef1 Dispense with patient. 1 po q4h prn for pain ordered. 22:24 [facility] Payment Agreement was scanned into [employer] and attached to record. zo 22:24 Scrotal, US Reviewed. ef1 06/12 10:04 T-Sheet-- Draft Copy was scanned into [employer] and attached to record. gb 10:04 Radiology Report was scanned into [employer] and attached to record. gb Administered Medications: 06/11 10:23 Drug: cefTRIAXone 250 mg [ceftriaxone 250 mg solution for injection (250 mg)] Route: kc3 IM; Site: right gluteus; 22:24 Drug: HYDROcodone-acetaminophen 4 pack- 1 packets [hydrocodone 5 mg-acetaminophen 325 kc3 mg tablet (1 tabs)] {Co-Signature: lf1 (Adali Low RN).} Route: PO; 22:25 Drug: azithromycin 1 grams [azithromycin 250 mg tablet (4 tabs)] Route: PO; kc3 Signatures: Dispatcher [employer] EDMS Marisabel Baez, Reg Reg gb Brett, Zoeann zo Telma Maradiaga, PA-C PA-C ef1 Ck GriffinRN RN Nataliia Owens RN RN kc3 Adali Low RN lf1 The chart was reviewed and I authenticate all verbal orders and agree with the evaluation and treatment provided.Attachments: 22:24 [facility] Payment Agreement zo 06/12 10:04 T-Sheet-- Draft Copy gb Chart Complete MTDD
--- NOTE | 2016-06-13 23:40 | EDDOCDS ---
Physician Documentation [facility] Name: Calin Grey Age: 26 yrs Sex: Male : 1990 Arrival Date: 06/11/2016 Time: 19:50 Bed PR Private MD: Long Pizarro [facility] Disposition: 06/11/16 22:23 Discharged to Home/Self Care. Impression: Epididymitis - Right, Hydrocele, unspecified - Small bilateral hydroceles. - Condition is Stable. - Discharge Instructions: Epididymitis. - Prescriptions for Ibuprofen 800 mg Oral Tablet - take 1 tablet by ORAL route every 8 hours As needed take with food; 30 tablet. - Medication Reconciliation, Local Pharmacy Hours form. - Follow up: [facility] Long Pizarro; When: 1 - 2 days; Reason: Recheck today's complaints, Continuance of care. Follow up: Emergency Department; Reason: Worsening of conditions. Follow up: Derek Schneider; When: Call to arrange an appointment; Reason: Further diagnostic work-up, Recheck today's complaints, Continuance of care. - Problem is new. - Symptoms have improved. Historical: - Allergies: No known drug Allergies; - Home Meds: 1. none - PMHx: none; - PSHx: Tonsillectomy; - Social history: Smoking status: Patient uses tobacco products, light tobacco smoker. No barriers to communication noted, The patient speaks fluent Danish, Speaks appropriately for age. - Family history: Not pertinent. - : The pt / caregiver states he / she is not on anticoagulants. Home medication list is obtained from the patient. - Exposure Risk Screening:: None identified. Vital Signs: 06/11 19:52 BP 165 / 81; Pulse 64; Resp 18; Temp 98.5(T); Pulse Ox 100% on R/A; Weight 88.45 kg / dem1 195 lbs (R); Height 5 ft. 11 in. (180.34 cm) (R); Pain 8/10; 21:37 BP 151 / 81; Pulse 67; Resp 18; Temp 99.3(TE); Pulse Ox 100% on R/A; Pain 10/10; ar3 22:38 BP 142 / 86; Pulse 66; Resp 18; Temp 99.2(TE); Pulse Ox 99% on R/A; Pain 9/10; kc3 19:52 Body Mass Index 27.20 (88.45 kg, 180.34 cm) dem1 MDM: 20:21 UA Ordered. EDMS 20:21 GC & Chlamydia Amplification Ordered. EDMS 20:21 Urine Culture Ordered. EDMS 20:22 Scrotal, US Ordered. EDMS 20:28 DUPLEX SCAN LIMITED (DOPPLER) Ordered. EDMS 21:28 Recheck B/P ordered. ef1 21:28 UA Reviewed. ef1 21:52 cefTRIAXone 250 mg IM once ordered. ef1 21:52 azithromycin 1 grams PO once ordered. ef1 22:07 Financial registration complete. zo 22:10 HYDROcodone-acetaminophen 4 pack- 5 mg-325 mg 1 packets PO Per package directions; ef1 Dispense with patient. 1 po q4h prn for pain ordered. 22:24 [facility] Payment Agreement was scanned into [employer] and attached to record. zo 22:24 Scrotal, US Reviewed. ef1 06/12 10:04 T-Sheet-- Draft Copy was scanned into [employer] and attached to record. gb 10:04 Radiology Report was scanned into [employer] and attached to record. gb Administered Medications: 06/11 10:23 Drug: cefTRIAXone 250 mg [ceftriaxone 250 mg solution for injection (250 mg)] Route: kc3 IM; Site: right gluteus; 22:24 Drug: HYDROcodone-acetaminophen 4 pack- 1 packets [hydrocodone 5 mg-acetaminophen 325 kc3 mg tablet (1 tabs)] {Co-Signature: lf1 (Adali Low RN).} Route: PO; 22:25 Drug: azithromycin 1 grams [azithromycin 250 mg tablet (4 tabs)] Route: PO; kc3 Signatures: Dispatcher [employer] EDMS Marisabel Baez, Reg Reg gb Brett, Zoeann zo Telma Maradiaga, PA-C PA-C ef1 Ck GriffinRN RN Nataliia Owens RN RN kc3 Adali Low RN lf1 The chart was reviewed and I authenticate all verbal orders and agree with the evaluation and treatment provided.Attachments: 22:24 [facility] Payment Agreement zo 06/12 10:04 T-Sheet-- Draft Copy gb Chart Complete MTDD
--- NOTE | 2016-06-13 23:40 | EDDOCDS ---
Nurse's Notes [facility] Name: Calin Grey Age: 26 yrs Sex: Male : 1990 Arrival Date: 06/11/2016 Time: 19:50 Bed PR Private MD: Long Pizarro [facility] Diagnosis: Epididymitis-Right;Hydrocele, unspecified-Small bilateral hydroceles Presentation: 06/11 19:55 Presenting complaint: Patient states: Patient reports that his right testicle is jmb swollen with pain. Symptoms started on Saturday. Patient reports the only change since Saturday is swelling. Adult Sepsis Screening: The patient does not have new or worsening altered mentation. Patient's respiratory rate is less than 22. Systolic blood pressure is greater than 100. Patient has a qSOFA score of 0- Negative Sepsis Screen. Suicide/Homicide risk assessment- the patient denies having any suicidal and/or homicidal ideations and does not present with any other emotional, behavioral or mental health complaints. 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 Transition of care: patient was not received from another setting of care. 19:55 Acuity: YOSHI Level 3 b 19:55 Method Of Arrival: Walkin/Carried/Asstd jmb Triage Assessment: 19:56 General: Appears uncomfortable, Behavior is appropriate for age, cooperative. Pain: b Location: groin Pain currently is 8 out of 10 on a pain scale. HIV screening NA for this visit Offered previously. Neurological: Level of Consciousness is awake, alert, obeys commands, Oriented to person, place, time, Speech is normal, Facial symmetry appears normal, Facial symmetry: tongue is midline. Respiratory: Airway is patent Respiratory effort is even, unlabored, Respiratory pattern is regular, symmetrical. Derm: Skin is pink, warm & dry. Musculoskeletal: Range of motion intact in all extremities. Historical: - Allergies: No known drug Allergies; - Home Meds: 1. none - PMHx: none; - PSHx: Tonsillectomy; - Social history: Smoking status: Patient uses tobacco products, light tobacco smoker. No barriers to communication noted, The patient speaks fluent German, Speaks appropriately for age. - Family history: Not pertinent. - : The pt / caregiver states he / she is not on anticoagulants. Home medication list is obtained from the patient. - Exposure Risk Screening:: None identified. Screenin:38 Screening information is obtained from the patient. Fall risk: No risks identified. kc3 Assistance ADL's: requires no assistance with activities of daily living. Abuse/DV Screen: The patient / caregiver reports he/she is: not in a situation that causes fear, pain or injury. Nutritional screening: No deficits noted. Advance Directives: Currently, there is no health care proxy. home support is adequate. Assessment: 22:37 General: Appears in no apparent distress, comfortable, Behavior is appropriate for age, kc3 cooperative. Pain: Location: groin Pain currently is 9 out of 10 on a pain scale. Neurological: Level of Consciousness is awake, alert, obeys commands. Respiratory: Airway is patent Respiratory effort is even, unlabored. : Reports pain Pain is 9 out of 10 on a pain scale. Derm: Skin is pink, warm & dry. Vital Signs: 19:52 BP 165 / 81; Pulse 64; Resp 18; Temp 98.5(T); Pulse Ox 100% on R/A; Weight 88.45 kg dem1 (R); Height 5 ft. 11 in. (180.34 cm) (R); Pain 8/10; 21:37 BP 151 / 81; Pulse 67; Resp 18; Temp 99.3(TE); Pulse Ox 100% on R/A; Pain 10/10; ar3 22:38 BP 142 / 86; Pulse 66; Resp 18; Temp 99.2(TE); Pulse Ox 99% on R/A; Pain 9/10; kc3 19:52 Body Mass Index 27.20 (88.45 kg, 180.34 cm) [facility] Vitals: 19:52 Log In Time: June 11, 2016 at 19:46. [facility] ED Course: 19:51 Patient visited by Natalie Reed. dem1 19:51 Patient moved to Waiting dem1 19:52 Long Pizarro [facility] is Private Physician. dem1 19:53 Patient moved to Pre RCE dem1 19:56 Triage Initiated jmb 20:39 Patient moved to Ultrasound hgl 21:01 Patient moved to Pre RCE ar3 21:08 GC & Chlamydia Amplification Sent. jmb 21:08 Urine Culture Sent. jmb 21:08 UA Sent. jmb 21:27 Telma Maradiaga PA-C is PHCP. ef1 21:27 Ned Singh DO is Attending Physician. ef1 21:30 Patient moved to PR / ar3 21:31 Patient visited by Telma Maradiaga PA-C. ef1 21:37 Patient visited by Philly Gordillo PCA. ar3 21:48 Scrotal, US Returned. EDMS 22:09 Patient visited by Telma Maradiaga PA-C. ef1 22:23 [facility]. ef1 22:24 [facility] Payment Agreement was scanned into [employer] and attached to record. zo 22:26 Derek Schneider is Referral Physician. ef1 22:39 The patient / caregiver is instructed regarding the plan of care and ED course. kc3 22:39 No IV's were initiated during this patient's visit. No procedures done that require kc3 assistance. 06/12 10:04 T-Sheet-- Draft Copy was scanned into [employer] and attached to record. gb 10:04 Radiology Report was scanned into [employer] and attached to record. gb Administered Medications: 06/11 10:23 Drug: cefTRIAXone 250 mg [ceftriaxone 250 mg solution for injection (250 mg)] Route: kc3 IM; Site: right gluteus; 22:24 Drug: HYDROcodone-acetaminophen 4 pack- 1 packets [hydrocodone 5 mg-acetaminophen 325 kc3 mg tablet (1 tabs)] {Co-Signature: lf1 (Adali Low RN).} Route: PO; 22:25 Drug: azithromycin 1 grams [azithromycin 250 mg tablet (4 tabs)] Route: PO; kc3 Order Results: Lab Order: UA; SPEC'M 06/11/16 21:00 Test: APPEARANCE, URINE; Value: CLEAR; Range: CLEAR; Status: F Test: COLOR, URINE; Value: STRAW; Range: YELLOW; Status: F Test: PH,URINE; Value: 6.0; Range: 5.0-9.0; Units: UNITS; Status: F Test: SPECIFIC GRAVITY URINE AUTO; Value: 1.006; Range: 1.002-1.035; Status: F Test: PROTEIN, URINE AUTO; Value: NEGATIVE; Range: NEGATIVE; Units: mg/dL; Status: F Test: GLUCOSE, URINE (UA) AUTO; Value: NEGATIVE; Range: NEGATIVE; Units: mg/dL; Status: F Test: KETONE, URINE AUTO; Value: NEGATIVE; Range: NEGATIVE; Units: mg/dL; Status: F Test: UROBILINOGEN, URINE AUTO; Value: 0.2; Range: 0.0-2.0; Units: mg/dL; Status: F Test: BILIRUBIN, URINE AUTO; Value: NEGATIVE; Range: NEGATIVE; Status: F Test: NITRITE, URINE AUTO; Value: NEGATIVE; Range: NEGATIVE; Status: F Test: LEUKOCYTE ESTERASE, URINE AUTO; Value: NEGATIVE; Range: NEGATIVE; Status: F Test: BLOOD, URINE BLOOD; Value: NEGATIVE; Range: NEGATIVE; Status: F Test: WBC, URINE AUTO; Value: 2; Range: 0-3; Units: /HPF; Status: F Test: RBC, URINE AUTO; Value: 1; Range: 0-3; Units: /HPF; Status: F Test: BACTERIA, URINE AUTO; Value: NEGATIVE; Range: NEGATIVE; Status: F Test: SQUAMOUS EPITHELIAL CELL UR AU; Value: 0; Range: 0-6; Units: /HPF; Status: F Test: HYALINE CAST, URINE AUTO; Value: 0; Range: 0-1; Units: /LPF; Status: F Lab Order: Urine Culture; SPEC'M 06/11/16 21:00 Test: URINE CULTURE; Value: <EXTERNAL COMMENT eCWMed> FULL REPORT IN LAB NOTES (eCW and Medent).; Status: F Test: URINE CULTURE; Value: URINE CULTURE RESULT NO GROWTH; Status: F Lab Order: GC & Chlamydia Amplification; SPEC'M 06/11/16 21:00 Test: CHLAMYDIA DNA AMPLIFICATION; Value: NEGATIVE; Range: NEGATIVE; Status: F Test: GC DNA AMPLIFICATION; Value: NEGATIVE; Range: NEGATIVE; Status: F Radiology Order: Scrotal, US Test: Scrotal, US REASON FOR EXAMINATION: Deformity/Swelling; ; Clinical history: Pain.; Findings: Real-time ultrasound imaging of the testicles and scrotum was performed. The right testicle; measures 4.1 x 3.5 x 3.0 cm. The left testicle measures 4.5 x 2.7 x 2.0 cm. The testicles demonstrat; e normal echo texture and echogenicity. The right epididymis is enlarged and hypervascular. Normal co; dianna Doppler flow and arterial waveforms are otherwise seen bilaterally. There is a small extratesticu; lar calcification in the right scrotum measuring 3 mm in diameter. There are small bilateral hydrocel; es.; Impression:; 1. Findings consistent with right-sided epididymitis.; 2. Small bilateral hydroceles.; 3. Right scrotal ger.; 4. No evidence of testicular torsion.; ; Outcome: 22:23 Discharge ordered by Provider. ef1 22:39 Discharge Assessment: Patient awake, alert and oriented x 3. No cognitive and/or kc3 functional deficits noted. Patient verbalized understanding of disposition instructions. patient administered narcotics - no. The following High Risk Discharge criteria are identified: None. Discharged to home ambulatory. Condition: stable. Discharge instructions given to patient, Instructed on discharge instructions, follow up and referral plans. medication usage, Demonstrated understanding of instructions, medications, Pt was receptive of discharge instructions/ teaching. Prescriptions given X 1. No special radiology studies were completed. Property :Personal belongings accompany Pt. 22:39 Patient left the ED. kc3 Signatures: Dispatcher [employer] EDMS Marisabel Baez, Reg Reg gb Brett, Telma Howell, PA-C PA-C ef1 Philly Gordillo, ALPINE PATROLLER ALPINE PATROLLER ar3 Natalie Reed1 Ricky Pradol Ck Griffin,RN RN Nataliia Owens RN RN kc3 Adali Low RN lf1 Chart Complete MTDD
== END 2016-06-11 22:39 | disposition home or self-care (01) ==
LOC: M ED 19:50
DX: N45.1 Epididymitis (principal); N43.3 Hydrocele, unspecified; Z72.0 Tobacco use
CPT/HCPCS: 76870; 81001; 87086; 87491; 87591; 93976; 96372; 99284; J0696